=== PATIENT | female | born 1930 | race Two or more races ===

== ENCOUNTER 2017-11-23 12:25 | Emergency (ER) | payer SELFPAY ==
[2017-11-23] MEDS ORDERED: HYDROcodone-ACET 5/325MG TAB PO ONE (13:45)
[2017-11-23 14:50] VITALS: BP 97/31
== END 2017-11-23 16:30 | disposition home or self-care (01) ==
LOC: ER 12:25 → EDBD 12:25 → ER 16:30
DX: S99.912A Unspecified injury of left ankle, initial encounter (principal); Z90.49 Acquired absence of other specified parts of digestive tract; W19.XXXA Unspecified fall, initial encounter; Y93.89 Activity, other specified; Y99.8 Other external cause status; Y92.89 Other specified places as the place of occurrence of the external cause
CPT/HCPCS: 73600

== ENCOUNTER 2017-11-28 12:24 | Inpatient (IN) | payer OTHER ==
[~2017-11-28] VITALS: Ht 162.6 cm; Wt 80.5 kg
[2017-11-28] MEDS ORDERED: MORPHINE SULF INJ 2 MG/ML SYRINGE 1ML IV ONE (13:00)
[2017-11-28] MEDS ORDERED: ONDANSETRON HCL 4 MG/2 ML VIAL IV ONE (13:00)
[2017-11-28 13:33] LABS: Basophils # (auto) 0 uL; Basophils % (auto) 0.4 % (0.0-2.0); Eosinophils # (auto) 0.1 uL; Eosinophils % (auto) 2.1 % (0.0-7.0); Hemoglobin 12.5 g/dL (12.2-16.2); Lymphocytes # (auto) 1.5 uL; Lymphocytes % (auto) 27.5 % (10.0-50.0); Mean Corpuscular Hemoglobin 31.7 pg (28.0-32.0); Mean Corpuscular Hgb Conc. 32.9 g/dL (32.0-36.0); Mean Corpuscular Volume 96.3 fL (80.0-100.0); Monocytes # (auto) 0.6 uL; Monocytes % (auto) 11.7 % (0.0-12.0); Neutrophils # (auto) 3.2 uL; Neutrophils % (auto) 58.3 % (37.0-80.0); Nucleated Red Blood Cells % 0.1 %; Platelet Count (auto) 227 10^3/uL (140-450); Red Blood Cells 3.95 10^6/uL (4.0-5.20); Red Cell Distribution Width 13.4 % (11.8-14.3); White Blood Cell 5.5 10^3/uL (4.4-10.8)
[2017-11-28 13:47] LABS: INR 1.03 (0.9-1.15)
[2017-11-28] MEDS ORDERED: cefTRIAXone 1GM/10ml IVPUSH 10 ML IV ONE (14:45)
[2017-11-28] MEDS ORDERED: MORPHINE SULF INJ 2 MG/ML SYRINGE 1ML IV PRN (15:00)
[2017-11-28] MEDS ORDERED: DOCUSATE SOD 100 MG CAP PO PRN (15:00)
[2017-11-28] MEDS ORDERED: DEXTROSE (50%) 50ML SYRG IV PRN (15:00)
[2017-11-28] MEDS ORDERED: TEMAZEPAM 15 MG CAP PO PRN (15:00)
[2017-11-28] MEDS ORDERED: ACETAMINOPHEN 325 MG TAB PO PRN (15:00)
[2017-11-28] MEDS ORDERED: ONDANSETRON HCL 4 MG/2 ML VIAL IV PRN (15:00)
[2017-11-28 15:13] LABS: BUN/Creatinine Ratio 24.7; Potassium 4.4 mmol/L (3.5-5.1)
[2017-11-28 15:14] LABS: Bilirubin, Total 0.6 mg/dL (0.2-1.0); Calcium 8.9 mg/dL (8.5-10.1)
[2017-11-28] MEDS: CLINDAMYCIN 300MG IV 50 ML IV SCH ×2 (15:58→21:28)
[2017-11-28 16:02] LABS: Urine Bacteria FEW /hpf (None Seen); Urine Blood Negative /uL (Negative); Urine Mucus FEW (None Seen); Urine Specific Gravity 1.014 (1.001-1.035); Urine WBC 4 /hpf (0 - 5)
[2017-11-28] MEDS: InsuLIN REG 1unit/0.01ml Soln (100units/ml) SC SCH ×2 (17:00→21:29)
[2017-11-28 17:30] VITALS: BP 143/61
[2017-11-28] MEDS: ACCU-CHEK COMFORT CURVE STRIP VI SCH ×2 (18:41→21:30)
[2017-11-28] MEDS: SODIUM CHLOR 0.9% PF (SALINE LOCK) 10ML VIAL/SYR IV SCH (21:29)
[2017-11-28] MEDS: ASCORBIC ACID 500 MG TAB PO SCH (21:29)
[2017-11-28] MEDS: FAMOTIDINE 20 MG TAB PO SCH (21:29)
[2017-11-28 22:00] VITALS: BP 124/67
[2017-11-29] MEDS: HYDROcodone-ACET 5/325MG TAB PO PRN ×2 (04:58→13:30)
[2017-11-29 05:00] VITALS: BP 122/71
[2017-11-29] MEDS: CLINDAMYCIN 300MG IV 50 ML IV SCH (06:15)
[2017-11-29] MEDS: SODIUM CHLOR 0.9% PF (SALINE LOCK) 10ML VIAL/SYR IV SCH ×3 (06:17→21:50)
[2017-11-29] MEDS: InsuLIN REG 1unit/0.01ml Soln (100units/ml) SC SCH ×2 (06:17→11:30)
[2017-11-29] MEDS: ACCU-CHEK COMFORT CURVE STRIP VI SCH ×2 (06:18→11:44)
[2017-11-29 06:24] LABS: Basophils # (auto) 0 uL; Basophils % (auto) 0.4 % (0.0-2.0); Eosinophils # (auto) 0.2 uL; Eosinophils % (auto) 2.7 % (0.0-7.0); Hematocrit 32.6 % (36.0-46.0); Hemoglobin 11.1 g/dL (12.2-16.2); Lymphocytes % (auto) 33.7 % (10.0-50.0); Mean Corpuscular Hgb Conc. 34.2 g/dL (32.0-36.0); Mean Corpuscular Volume 96.4 fL (80.0-100.0); Monocytes # (auto) 0.7 uL; Monocytes % (auto) 12.7 % (0.0-12.0); Neutrophils # (auto) 2.9 uL; Neutrophils % (auto) 50.5 % (37.0-80.0); Nucleated Red Blood Cells % 0.1 %; Platelet Count (auto) 196 10^3/uL (140-450); Red Blood Cells 3.38 10^6/uL (4.0-5.20); Red Cell Distribution Width 13.3 % (11.8-14.3); White Blood Cell 5.8 10^3/uL (4.4-10.8)
[2017-11-29 06:37] LABS: Albumin 2.6 g/dL (3.4-5.0); BUN/Creatinine Ratio 26.4; Bilirubin, Total 0.6 mg/dL (0.2-1.0); Calcium 8.4 mg/dL (8.5-10.1); Potassium 4.5 mmol/L (3.5-5.1); Total Protein 6.8 g/dL (6.4-8.2)
[2017-11-29 09:00] VITALS: BP 119/62
[2017-11-29] MEDS: cefTRIAXone 1GM/10ml IVPUSH 10 ML IV SCH (09:40)
[2017-11-29] MEDS: ZINC SULFATE 220mg CAP or TAB PO SCH (09:41)
[2017-11-29] MEDS: MULTIPLE VITAMIN TAB PO SCH (09:41)
[2017-11-29] MEDS: ASCORBIC ACID 500 MG TAB PO SCH ×2 (09:42→21:51)
[2017-11-29] MEDS: FAMOTIDINE 20 MG TAB PO SCH ×2 (09:42→21:51)
[2017-11-29 13:00] VITALS: BP 116/47
[2017-11-29] MEDS ORDERED: DOCUSATE SOD 100 MG CAP PO PRN (13:15)
[2017-11-29] MEDS ORDERED: DOCUSATE SOD 100 MG CAP PO ONE (13:15)
[2017-11-29] MEDS ORDERED: BISACODYL 10 MG RECT SUPP PR ONE (13:15)
[2017-11-29] MEDS ORDERED: BISACODYL 10 MG RECT SUPP PR PRN (13:15)
[2017-11-29 17:00] VITALS: BP 126/54
[2017-11-29] MEDS: DOCUSATE SOD 100 MG CAP PO SCH (21:50)
[2017-11-29 22:00] VITALS: BP 132/70
[2017-11-30 05:00] VITALS: BP 147/92
[2017-11-30] MEDS: SODIUM CHLOR 0.9% PF (SALINE LOCK) 10ML VIAL/SYR IV SCH ×3 (05:51→21:10)
[2017-11-30 08:48] VITALS: BP 131/88
[2017-11-30] MEDS: ZINC SULFATE 220mg CAP or TAB PO SCH (10:22)
[2017-11-30] MEDS: DOCUSATE SOD 100 MG CAP PO SCH ×2 (10:22→21:10)
[2017-11-30] MEDS: cefTRIAXone 1GM/10ml IVPUSH 10 ML IV SCH (10:23)
[2017-11-30] MEDS: ASCORBIC ACID 500 MG TAB PO SCH ×2 (10:23→21:10)
[2017-11-30] MEDS: FAMOTIDINE 20 MG TAB PO SCH ×2 (10:23→21:10)
[2017-11-30] MEDS: MULTIPLE VITAMIN TAB PO SCH (10:23)
[2017-11-30] MEDS ORDERED: LACTULOSE 20Gm/30ML SOLN PO PRN (11:30)
[2017-11-30 12:19] VITALS: BP 119/72
[2017-11-30 17:46] VITALS: BP 145/58
[2017-11-30] MEDS: HYDROcodone-ACET 5/325MG TAB PO PRN (21:10)
[2017-11-30 22:05] VITALS: BP 151/73
[2017-12-01] MEDS: SODIUM CHLOR 0.9% PF (SALINE LOCK) 10ML VIAL/SYR IV SCH (05:20)
[2017-12-01 05:42] VITALS: BP 139/59
[2017-12-01] MEDS: HYDROcodone-ACET 5/325MG TAB PO PRN (08:20)
[2017-12-01 08:53] VITALS: BP 149/69
[2017-12-01] MEDS: DOCUSATE SOD 100 MG CAP PO SCH (09:22)
[2017-12-01] MEDS: FAMOTIDINE 20 MG TAB PO SCH (09:22)
[2017-12-01] MEDS: ASCORBIC ACID 500 MG TAB PO SCH (09:22)
[2017-12-01] MEDS: MULTIPLE VITAMIN TAB PO SCH (09:22)
[2017-12-01] MEDS: ZINC SULFATE 220mg CAP or TAB PO SCH (09:23)
[2017-12-01] MEDS: cefTRIAXone 1GM/10ml IVPUSH 10 ML IV SCH (09:24)
[2017-12-01 12:03] VITALS: BP 126/66
[2017-12-01 14:51] VITALS: BP 126/58
[2017-12-01 16:13] VITALS: BP 107/69
== END 2017-12-01 16:30 | disposition home or self-care (01) | DRG 563 ==
LOC: EDBD 12:24 → ER 12:24 → OVERFLOW 12:25 → EAST 17:36
PROVIDERS: ADMIT Internal Medicine; ATTEND Internal Medicine
DX: S82.852A Displaced trimalleolar fracture of left lower leg, initial encounter for closed fracture (principal); L03.90 Cellulitis, unspecified; K59.00 Constipation, unspecified; K21.9 Gastro-esophageal reflux disease without esophagitis; Z82.49 Family history of ischemic heart disease and other diseases of the circulatory system; Z83.3 Family history of diabetes mellitus; Z90.49 Acquired absence of other specified parts of digestive tract; W18.39XA Other fall on same level, initial encounter; Y93.89 Activity, other specified; Y92.89 Other specified places as the place of occurrence of the external cause; Y99.8 Other external cause status
CPT/HCPCS: 36415; 71045; 73700; 80053; 81001; 82962; 83036; 83605; 84443; 85025; 85610; 85730; 87040; 87081; 87086; 93005; 94761; 96365; 96375; J0696; J2405; J3490